=== PATIENT | male | born 1955 | race Caucasian/White ===

== ENCOUNTER 2025-05-31 10:48 | Outpatient (OUT) | payer MEDICARE, OTHER, SELFPAY ==
--- OUTSIDE RECORDS SUMMARY | 2025-05-31 10:53 | XMS_ITS | Clinical Summary ---
Author Organization [facility] Address [address] [place] [address] Care Team Providers Care Heel Seat Fitter Name Role Phone Saad Fry Sharyn DO Unavailable [phone] MD Unavailable [phone] Dorina Sullivan MD, IBCLC Primary Care Provid er Allergies No known active allergies Medications Multiple Vitamin (Multivitamin Adult) tablet Orally Active cholecalciferol (Vitamin D-3) 50 MCG (1999 UT) capsule Take by mouth Daily. Active omeprazole (PriLOSEC) [address] capsule Take 20 mg by mouth in the morning. Take before meals. 1/2 tab Do not crush or chew. . Active meloxicam (Mobic) 15 MG tabletIndications:O steoarthritis of multiple joints, unspecified osteoarthritis type Take 1 tablet (15 mg) by mouth Daily Take with food. 90 tablet 3 4 Active dutasteride (Avodart) 0.5 MG capsule Take 0.5 mg by mouth Daily 5 Active alfuzosin ER (Uroxatral) 10 MG 24 hr tablet Take 10 mg by mouth Daily Active Active Problems Problem Noted Date Diagnosed Date Tinnitus of both ears 02/26/2024 Primary osteoarthritis involving multiple joints 02/26/2024 Tear of right biceps muscle 12/28/2023 Mucoid cyst of joint 12/28/2023 Chronic right shoulder pain 12/16/2023 Osteoarthritis of right shoulder 12/16/2023 Right shoulder tendonitis 12/16/2023 Hyperuricemia 08/28/2023 Diverticulosis 08/20/2023 GERD (gastroesophageal reflux disease) Gout 08/20/2023 IFG (impaired fasting glucose) 08/20/2023 Meniere's syndrome 08/20/2023 PALMA (obstructive sleep apnea) 08/20/2023 Solitary pulmonary nodule 08/20/2023 Resolved Problems Problem Noted Date Diagnosed Date Resolved Date Elevated blood pressure reading 12/28/2023 03/02/2025 Encounters Date Type Department Care Team Description 03/02/2025 8:30 AM EDT Office Visit [facility] [address] [place] [address] Saad Fry DO Hyperuricemia (Primary Dx); IFG (impaired fasting glucose); Gastroesophageal reflux disease with esophagitis without hemorrhage; Solitary pulmonary nodule; Encounter for general health examination; Tick bite, unspecified site, initial encounter 03/02/2025 Refill [facility] [address] [place] [address] Augusta Chaudhary LPN Tick bite, unspecified site, initial encounter 03/02/2025 Travel from Last 3 Months Immunizations Immunization Administration Dates Next Due Influenza, High Dose Seasona l, Preservative Free 08/21/2022,08/23/2021 Influenza, Seasonal, Quadriv alent, Adjuvanted 08/28/2023 Influenza, injectable, quadrivalent 07/17/2016 Influenza, seasonal, intrade rmal, preservative free 08/17/2015,07/14/2014,07/14/2011,08/08 Influenza, trivalent, adjuvanted 024,08/23/2020,08/02/2019,08/18 Pneumococcal Conjugate PCV 13 05/25/2018 Pneumococcal Polysaccharide PPSV23 08/02/2019 Zoster, Recombinant 07/06/2018 Zoster, live 10/12/2013 Family History Medical History Relation Name Comments Diabetes type II Father Heart failure Father Breast cancer Mother Colon cancer Neg Hx Ovarian cancer Neg Hx Relation Name Status Comments Daughter Alive Father Mother Sister Alive Son Alive Social History Tobacco Use Types Packs/Day Years Used Date Smoking Tobacco: Former Cigarettes 1 15 0 10/12/1996 - 10/12/2011 Passive Smoke Exposure: Past Smokeless Tobacco: Never Alcohol Use Standard Drinks/Week Comments Yes 2 (1 standard drink = 0.6 oz pure alcohol) caffeine: 1-2 cups per day coffee AUDIT-C Answer Date Recorded Q1: How often do you have a drink containing alc ohol? 2-3 times a week 02/26/2024 Q2: How many drinks containi ng alcohol do you have on a typical day when you are drinking? 3 or 4 02/26/2024 Q3: How often do you have si x or more drinks on one occasion? 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 Not on file Not on file Not on file Last Filed Vital Signs Vital Sign Reading Time Taken Comments Blood Pressure 124/78 03/02/2025 8:39 AM EDT Pulse 68 03/02/2025 8:39 AM EDT Temperature - - Respiratory Rate - - Oxygen Saturation 96% 03/02/2025 8:39 AM EDT Inhaled Oxygen Concentration - - Weight 85.3 kg (188 lb) 03/02/2025 8:39 AM EDT Height 175.3 cm (5' 9 ) 03/02/2025 8:39 AM EDT Body Mass Index 27.76 03/02/2025 8:39 AM EDT Plan of Treatment Upcoming Encounters Date Type Department Care Team (Late st Contact Info) Description 09/14/2025 10:00 AM EST Office Visit [facility] [address] [place] [id number] Dorina Sullivan MD, IBCLC [address] [place] [address] Health Maintenance Due Date Last Done Comments CT Colonography 1955 FIT-DNA 1955 FIT 1955 FOBT 1955 Sigmoidoscopy 1955 Influenza Vaccine (#1) 2025 4, 08/28/2023, 08/21/2022, Additional history exists Medicare Annual Wellness (AWV) 09/02/2025 09/02/2024 , 08/21/2022 Colonoscopy 11/08/2028 11/08/2018, 10/13, 09/22/2018 Colorectal Cancer Screening 11/08/2028 Pneumococcal Vaccine: 65+ Years Completed 9, 05/25/2018 Procedures Procedure Name Priority Date/Time Associated Diagnosis Comments COLONOSCOPY Routine 11/08/2018 12:00 PM EST from Last 3 Months or Most Recently Relevant to Health Maintenance Results * Colonoscopy (11/08/2018 12:00 PM EST) Anatomical Region Laterality Modality Endoscopy 11/08/2018 12:0 0 PM EST Narrative 11/08/2018 12:00 PM EST PERFORMED AT [facility] LOCATION:[id number] diverticulosis Procedure Note CONVERSION, GENERIC - 02/25/2023 PERFORMED AT [facility] LOCATION:[id number] diverticulosis Saad Fry DO ENDOSCOPY PROCEDURE ORDERABL ES Final Result from Last 3 Months or Most Recently Relevant to Health Maintenance [place] [address] [employer]ARE [employer] Care Teams Heel Seat Fitter Relationship Specialty Start Date End Date Saad Fry DO [address] [address] PCP - ACO Reach 03/05/23 Dorina Sullivan MD, IBCLC [address] [place] [address] PCP - General Family Medicine 05/01/[address] MD [address] [place] [address] Referring Physician Ophthalmology 08/28/23
--- OUTSIDE RECORDS SUMMARY | 2025-05-31 10:53 | XMS_ITS | Clinical Summary ---
Author Organization [facility] Address [address] [place] [address] Care Team Providers Care Project/Production Manager Imaging Name Role Phone Unavailable Primary Care Provider Unavailabl e Allergies No known active allergies Medications omeprazole (PRILOSEC) 20 mg capsule Take 1 capsule by mouth once daily. 0 3 Active meloxicam (MOBIC) 15 mg tabletIndications:P rimary osteoarthritis of left knee Take 1 tablet by mouth once daily. with food 90 tablet 1 3 Active Active Problems Problem Noted Date Diagnosed Date Primary osteoarthritis of left knee 08/27/2022 Left ankle pain 02/24/2013 Posterior tibial tendon dysfunction 12/27/2012 Derangement of ankle or foot 12/27/2012 Social History Tobacco Use Types Packs/Day Years Used Date Smoking Tobacco: Never Assessed Area Deprivation Index Answer Date James rded National Score (1-100), lower number is lower ri sk 47 11/07/2022 State Score (1-10), lower number is lower risk N ot on file 11/07/2022 Data from: https://www.neighborhoodatlas.medicine.[facility].edu/. Last address used for calculation [facility] [place] 11/07/2022 Sex and Gender Information Value Date Recorded Sex Assigned at Not on file Legal Sex Male 9:57 AM EST Gender Identity Not on file Sexual Orientation Straight 08/20/2022 11 :14 AM EST Plan of Treatment Health Maintenance Due Date Last Done Comments Anxiety Screening 1971 Depression Screening 1971 Hepatitis C Screening 1971 DTaP,Tdap,Td Vaccine (1 - Tdap) 01/14/1972 CT Colonography 1998 Cologuard (FIT-DNA) 1998 Colonoscopy 1998 Colorectal Cancer Screening 1998 Fecal Occult Blood 1998 Sigmoidoscopy 1998 Lipid Screening 01/06/2008 01/05/2003 Medicare Annual Wellness Visit 01/10/2018 Shingrix Vaccine (3 of 3) 08/31/2018 07/06/2018, 10/2013 Diabetes Screening 08/20/2024 08/20/2021, 01/05/2003 Advance Directive Discussion 10/12/2024 Influenza Vaccine (#1) 2025 2, 08/23/2021, 08/23/2020, Additional history exists RSV Vaccine (1 - 1-dose 75+ series) 01/14/2028 Pneumococcal Vaccine: 50+ Completed 08/02/2019, Procedures Procedure Name Priority Date/Time Associated Diagnosis Comments COMPREHENSIVE METABOLIC PANEL 01/05/2003 9:45 AM EST LIPID PANEL, FASTING 01/05/2003 9:45 AM EST from Last 3 Months or Most Recently Relevant to Health Maintenance Results * (ABNORMAL) LIPID PANEL BASIC (01/05/2003 9:45 AM EST) Triglyceride 100 30 - 149 mg/dL [facility] Cholesterol, Total 200(A) 100 - 199 mg/dL [facility] HDL Cholesterol 84 >45 mg/dL [facility] Cholesterol 20 6 - 40 mg/dL [facility] LDL Cholesterol, Calculated 96 60 - 129 mg/dL [facility] Fasting Time 2 hrs [facility] TC:HDL Ratio 2.38 1.00 - 5.00 [facility] LDL:HDL Ratio 1.14 0.50 - 3.55 [facility] 01/05/2003 9:45 AM EST us Roberth Villalta MD LABORATORY Final Result [facility] [address] [place] [address] * (ABNORMAL) COMP METABOLIC PANEL (01/05/2003 9:45 AM EST) Protein, Total 7.7 6.0 - 8.4 g/dL [facility] Albumin 4.6 3.5 - 5.0 g/dL [facility] Calcium 9.8 8.5 - 10.5 mg/dL [facility] Bilirubin, Total 0.6 0.0 - 1.5 mg/dL [facility] Alkaline Phosphatase 90 40 - 150 U/L [facility] AST 19 7 - 40 U/L [facility] Glucose 89 65 - 110 mg/dL [facility] BUN 19 10 - 25 mg/dL [facility] Creatinine 1.1 0.7 - 1.4 mg/dL [facility] Sodium 138 135 - 146 mmol/L [facility] Potassium 4.4 3.5 - 5.0 mmol/L [facility] Chloride 103 98 - 110 mmol/L [facility] CO2 21(A) 24 - 32 mmol/L [facility] Anion Gap 14 0 - 15 mmol/L [facility] ALT 16 5 - 50 U/L [facility] 01/05/2003 9:45 AM EST Roberth Villalta MD LABORATORY Final Result [facility] [address] [place] [address] from Last 3 Months or Most Recently Relevant to Health Maintenance Insurance [facility] [place] SUPPLEMENT MEDICARE
--- NOTE | 2025-05-31 10:57 | ECG_ITS ---
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 Measurements Intervals [place] Rate: 58 P: 11 NE: 157 QRS: 55 QRSD: 83 T: 51 QT: 380 QTc: 375 Interpretive Statements SINUS BRADYCARDIA Borderline ECG No previous ECG available for comparison Electronically Signed On 05-31-2025 18:22:49 EDT by MARYSE PEREZ M.D.
--- NOTE | 2025-05-31 11:34 | PM.PRESUREVA ---
History of Present Illness History of Present Illness Chief complaint: BPH with Obstruction Narrative: Patient presents for presurgical testing. The patient states he was evaluated by urology for nocturia and had a cystoscopy and is now scheduled for a TURP. The patient states he has started on alfuzosin and dutasteride and states he has noticed he does not have to urinate quite as frequently, but still is experiencing some nocturia. He states he does have a left inguinal hernia which is reducible. He denies abdominal pain, nausea, vomiting, hematuria, or any other complaints. Review of Systems ROS Narrative REVIEW OF SYSTEMS: Negative except as stated in HPI, ten or more systems reviewed. Constitutional: No fever, chills, weakness ENT: No sore throat or epistaxis Cardiovascular: No edema, chest pain, palpitations, or activity intolerance Respiratory: No shortness of breath, cough, or wheezing Musculoskeletal: No joint pain or swelling Gastrointestinal: No abdominal pain, constipation, diarrhea, or vomiting Genitourinary: No dysuria or hematuria Neurological: No numbness, tingling, weakness, or headache Psychiatric: No mood changes PFSH PFS Medical History (Updated 05/31/25 @ 11:19 by Azra Collado NP) Arthritis ?M19.90 - Unspecified osteoarthritis, unspecified site (ICD-10) Sleep apnea ?G47.30 - Sleep apnea, unspecified (ICD-10) Hernia ?K46.9 - Unspecified abdominal hernia without obstruction or gangrene (ICD-10) Gout ?M10.9 - Gout, unspecified (ICD-10) GERD (gastroesophageal reflux disease) ?K21.9 - Gastro-esophageal reflux disease without esophagitis (ICD-10) BPH with obstruction/lower urinary tract symptoms ?N40.1 - Benign prostatic hyperplasia with lower urinary tract symptoms (ICD-10) ?N13.8 - Other obstructive and reflux uropathy (ICD-10) Surgical History (Updated 05/31/25 @ 11:19 by Azra Collado NP) History of cardiac catheterization (2009) ?Z98.890 - Other specified postprocedural states (ICD-10) S/P cataract extraction and insertion of intraocular lens ?Z98.49 - Cataract extraction status, unspecified eye (ICD-10) ?Z96.1 - Presence of intraocular lens (ICD-10) History of colonoscopy ?Z98.890 - Other specified postprocedural states (ICD-10) H/O inguinal hernia repair ?Z98.890 - Other specified postprocedural states (ICD-10) ?Z87.19 - Personal history of other diseases of the digestive system (ICD-10) H/O foot surgery ?Z98.890 - Other specified postprocedural states (ICD-10) History of hernia repair ?Z98.890 - Other specified postprocedural states (ICD-10) ?Z87.19 - Personal history of other diseases of the digestive system (ICD-10) S/P arthroscopic knee surgery ?Z98.890 - Other specified postprocedural states (ICD-10) H/O cystoscopy ?Z98.890 - Other specified postprocedural states (ICD-10) Family History (Updated 05/31/25 @ 11:19 by Azra Collado NP) Other Congestive heart failure (CHF) Family history of breast cancer Family history of cancer Family history of diabetes mellitus Family history of heart disease Social History (Updated 05/31/25 @ 11:09 by Azra Collado NP) Within the past year, how often did you have a drink containing alcohol: 4 or more times a week Within the past year, how many standard drinks containing alcohol did you have on a typical day: 1 or 2 Total score: 0 Score interpretation: A score less than 4 is consistent with normal alcohol consumption. Smoking status: Former smoker Non-prescribed substance use: denies use Previous occupational history: [employer] Estate Highest level of school completed/degree received: Associate degree: academic program Meds Home Medications and Allergies Home Medications ?Medication ?Instructions ?Recorded ?Confirmed ?Type alfuzosin 10 mg tablet,extended 10 mg PO DAILY 05/31/25 05/31/25 History release 24 hr dutasteride 0.5 mg capsule 0.5 mg PO DAILY 05/31/25 05/31/25 History meloxicam 15 mg tablet 15 mg PO DAILY 05/31/25 05/31/25 History omeprazole 20 mg capsule,delayed 20 mg PO DAILY 05/31/25 05/31/25 History release Allergies Allergy/AdvReac Type Severity Reaction Status Date / Time No Known Drug Allergies Allergy Verified 05/31/25 11:02 Exam Narrative Exam Narrative: Constitutional: Awake, alert, comfortable, well-appearing, nontoxic, interactive, vital signs as charted Head: Normocephalic, atraumatic Neck: Supple, normal appearance, normal range of motion, no meningeal signs, no lymphadenopathy Respiratory: No respiratory distress, breath sounds clear Cardiovascular: Regular rate and rhythm, strong and regular heart tones Abdomen: Nontender, normal bowel sounds, soft, no CVA tenderness, reducible left inguinal hernia Musculoskeletal: Normal gait, no swelling or edema Skin: No rashes or induration, no lesions, only visible skin inspected Neuro: No neurological deficits, normal sensation Psychiatric: Oriented ?3, normal affect Assessment and Plan Assessment and Plan (1) BPH with obstruction/lower urinary tract symptoms: Plan Cystoscopy, TURP scheduled with Dr. Mñuoz June 15, 2025.
[2025-05-31 11:48] LABS: Anion Gap 8.4; Blood Urea Nitrogen 11.0 mg/dL (7.0-18.0); Calcium 9.2 mg/dL (8.5-10.1); Carbon Dioxide 30.4 mmol/L (21.0-32.0); Chloride 107 mmol/L (98-107); Estimated GFR (African America >60 (>=60 mL/min/1.73m^2); Estimated GFR (Non-African Ame >60 (>=60 mL/min/1.73m^2); Glucose 92 mg/dL (74-106); Potassium 4.8 mmol/L (3.5-5.1); Sodium 141 mmol/L (136-145)
[2025-05-31 11:55] LABS: INR 1.04; Partial Thromboplastin Time 29.1 sec (22.3-36.2); Prothrombin Time 11.0 sec (9.0-11.6)
[2025-05-31 12:09] LABS: Hematocrit 41.3 % (42.0-54.0); Hemoglobin 14.1 g/dL (14.0-18.0); Immature Granulocytes Abs Auto 0.02 10^3/uL (0.00-0.03); Immature Granulocytes Pct Auto 0.4 % (0.0-0.5); Lymphocytes Absolute Auto 1.4 10^3/uL (1.2-3.8); Mean Corpuscular HGB Conc 34.1 g/dL (29.9-35.2); Mean Corpuscular Hemoglobin 31.0 pg (25.9-34.0); Mean Corpuscular Volume 90.8 fL (80.0-94.0); Platelet Count 201 10^3/uL (150-450); Red Blood Count 4.55 10^6/uL (4.70-6.10); White Blood Count 4.9 10^3/uL (4.0-11.0)
== END 2025-05-31 10:49 | disposition home or self-care (01) ==
LOC: PST 10:51
PROVIDERS: Visit Provider Urology
DX: Z01.810 Encounter for preprocedural cardiovascular examination (principal); Z01.812 Encounter for preprocedural laboratory examination; Z01.818 Encounter for other preprocedural examination; N40.1 Benign prostatic hyperplasia with lower urinary tract symptoms
CPT/HCPCS: 36415; 80048; 85025; 85610; 85730; 93005; G0463